=== PATIENT | female | born 1980 | race Caucasian/White ===

== ENCOUNTER 2016-10-29 15:31 | Emergency (ER) | payer OTHER ==
[2016-10-29 15:57] VITALS: BP 129/96
--- NOTE | 2016-10-29 17:10 | EDM.PDOC ---
ED HPI GENERAL MEDICAL PROBLEM - General Chief Complaint: General Stated Complaint: HEADACHE; DIZZY Time Seen by Provider: 10/29/16 16:07 Source of Information: Reports: Patient, RN Notes Reviewed History Limitations: Reports: No Limitations - History of Present Illness INITIAL COMMENTS - FREE TEXT/NARRATIVE: 36-year-old female presents emergency department today with complaint of fullness in her ears and head this been going on for about 9 days she denies any fever nausea vomiting she does feel dizzy at times and does complain of headache she is tried phenylephrine with minimal relief Headache Pain Score (Numeric/FACES): 9 - Related Data Allergies Allergy/AdvReac Type Severity Reaction Status Date / Time No Known Allergies Allergy Verified 10/29/16 15:57 Home Meds: Home Meds NK [No Known Home Meds] 10/29/16 [History] 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 Social & Family History - Tobacco Use Smoking Status *Q: Never Smoker - Caffeine Use Caffeine Use: Reports: Soda - Recreational Drug Use Recreational Drug Use: No ED ROS GENERAL - Review of Systems Review Of Systems: See Below Constitutional: Denies: Fever, Chills HEENT: Reports: Ear Pain, Sinus Problem Respiratory: Reports: No Symptoms Cardiovascular: Reports: No Symptoms GI/Abdominal: Reports: No Symptoms : Reports: No Symptoms Neurological: Reports: Headache ED EXAM, GENERAL - Physical Exam Exam: See Below Exam Limited By: No Limitations General Appearance: Alert, WD/WN, No Apparent Distress Eye Exam: Bilateral Eye: Normal Inspection Ears: Normal External Exam, Normal Canal, Other (Fluid is appreciated behind both membranes) Ear Exam: Bilateral Ear: TM Bulging Nose: Normal Inspection, Normal Mucosa, No Blood Throat/Mouth: Normal Inspection, Normal Lips, Normal Teeth, Normal Gums, Normal Oropharynx, Normal Voice, No Airway Compromise Head: Atraumatic, Normocephalic Neck: Normal Inspection Respiratory/Chest: No Respiratory Distress Course - Vital Signs Last Recorded V/S: Last Vital Signs Temp 98.4 F 10/29/16 15:58 Pulse 82 10/29/16 15:58 Resp 16 07/02/17 15:58 BP 129/96 H 10/29/16 15:58 Pulse Ox 96 10/29/16 15:58 Departure - Departure Time of Disposition: 17:09 Disposition: Home, Self-Care 01 Condition: Good Clinical Impression: Serous otitis media Qualifiers: Chronicity: acute Laterality: bilateral Recurrence: not specified as recurrent Qualified Code(s): H65.03 - Acute serous otitis media, bilateral - Discharge Information Forms: ED Department Discharge Additional Instructions: Try the pseudoephedrine as needed for symptomatic relief of the head pressure, Please followup with your primary care provider in 3-5 days if not better, please call return to the emergency department with worsening of symptoms. - Assessment/Plan Plan: Assessment Acuity = acute Site and laterality = serous otitis media Etiology = unclear etiology Manifestations = headache Location of injury = Home Lab values = none Plan Continue symptomatic care will add pseudoephedrine 60 mg 3 times a day when necessary follow-up with primary care 3-5 days if not better doubt Patient was in agreement with the plan all questions were answered, they were instructed to return to the emergency department or call for worsening symptoms. This note was dictated using [facility] voice recognition software please call with any questions.
== END 2016-10-29 17:23 | disposition home or self-care (01) ==
LOC: JP.ED 15:31
DX: H65.03 Acute serous otitis media, bilateral (principal); Z90.49 Acquired absence of other specified parts of digestive tract; Z98.890 Other specified postprocedural states
CPT/HCPCS: 99284

== ENCOUNTER 2020-11-20 19:20 | Emergency (ER) | payer OTHER ==
[2020-11-20] MEDS ORDERED: Famotidine 20 MG/2 ML SDV IVPUSH ONE (19:28)
[2020-11-20] MEDS ORDERED: diphenhydrAMINE 50 MG/ML SDV IVPUSH ONE (19:28)
[2020-11-20] MEDS ORDERED: methylPREDNISolone Sodium Succinate 125 MG/2 ML SDV IV ONE (19:28)
[2020-11-20] MEDS ORDERED: Sodium Chloride 0.9% 1,000 ML IV SCH (19:30)
[2020-11-20 20:29] VITALS: BP 151/102; PULSE 91
--- NOTE | 2020-11-20 20:38 | EDM.PDOC ---
ED HPI GENERAL MEDICAL PROBLEM - General Chief Complaint: Allergic Reaction Stated Complaint: BITTEN IN HESTER Time Seen by Provider: 11/20/20 19:31 Source of Information: Reports: Patient History Limitations: Reports: No Limitations - History of Present Illness INITIAL COMMENTS - FREE TEXT/NARRATIVE: 40 yo female present to ER full body hives after being stung by an insect in the right leg. 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: Musculoskeletal History: Reports: Fracture Neurological History: Reports: Concussion Endocrine/Metabolic History: Reports: Obesity/BMI 30+ - Infectious Disease History Infectious Disease History: Reports: Chicken Pox - Past Surgical History Head Surgeries/Procedures: Reports: None HEENT Surgical History: Reports: Adenoidectomy, Tonsillectomy Cardiovascular Surgical History: Reports: None GI Surgical History: Reports: Cholecystectomy Endocrine Surgical History: Reports: None Neurological Surgical History: Reports: None Musculoskeletal Surgical History: Reports: Other (See Below) Other Musculoskeletal Surgeries/Procedures:: right ankle surgery. Dermatological Surgical History: Reports: None Social & Family History - Tobacco Use Tobacco Use Status *Q: Never Tobacco User Second Hand Smoke Exposure: No - Caffeine Use Caffeine Use: Reports: Coffee, Soda - Recreational Drug Use Recreational Drug Use: No ED ROS ALLERGIC REACTION - Review of Systems Review Of Systems: See Below Constitutional: Denies: Fever, Chills, Fatigue HEENT: Denies: Throat Swelling Respiratory: Denies: Shortness of Breath, Wheezing, Cough Cardiovascular: Denies: Chest Pain GI/Abdominal: Denies: Abdominal Pain Skin: Reports: Rash, Urticaria ED EXAM GENERAL NO PERIP PULSE - Physical Exam Exam: See Below Exam Limited By: No Limitations General Appearance: Alert, WD/WN, Mild Distress Head: Atraumatic, Normocephalic Neck: Normal Inspection, Supple, Non-Tender, Full Range of Motion Respiratory/Chest: No Respiratory Distress, Lungs Clear, Normal Breath Sounds. No: Crackles, Rhonchi, Wheezing Cardiovascular: No Murmur, Tachycardia GI/Abdominal: Soft, Non-Tender Neurological: Alert, Oriented Skin Exam: Warm, Dry, Intact, Increased Warmth, Rash, Other (uticaria ABD, groin, axillary, ears, chin and lower lip) Course - Vital Signs Last Recorded V/S: Last Vital Signs Temp 36.4 C 11/20/20 19:47 Pulse 91 11/20/20 20:29 Resp 16 11/20/20 19:53 BP 151/102 H 11/20/20 20:29 Pulse Ox 97 11/20/20 20:29 - Orders/Labs/Meds Orders: Active Orders 24 hr Category Date Time Status Sodium Chloride 0.9% [Normal Saline] 1,000 ml Med 11/20/20 19:30 Active IV ASDIRECTED Medication Orders Sodium Chloride (Normal Saline) 1,000 mls @ 125 mls/hr IV ASDIRECTED BARRIE Last Admin: 11/20/20 19:42 Dose: 125 mls/hr Documented by: LUPILLO Meds: Medications Generic Name Dose Route Start Last Admin Trade Name Freq PRN Reason Stop Dose Admin Sodium Chloride 1,000 mls @ 125 mls/hr 11/20/20 19:30 11/20/20 19:42 Normal Saline IV 125 mls/hr ASDIRECTED BARRIE Administration Discontinued Medications Generic Name Dose Route Start Last Admin Trade Name Freq PRN Reason Stop Dose Admin Diphenhydramine HCl 50 mg 11/20/20 19:28 11/20/20 19:36 Diphenhydramine 50 Mg/Ml Sdv IVPUSH 11/20/20 19:29 50 mg ONETIME ONE Administration Famotidine 20 mg 11/20/20 19:28 11/20/20 19:39 Famotidine 20 Mg/2 Ml Sdv IVPUSH 11/20/20 19:29 20 mg ONETIME ONE Administration Methylprednisolone Sodium Succinate 125 mg 11/20/20 19:28 11/20/20 19:34 Methylprednisolone Sodium Succinate 125 Mg/2 Ml Sdv IV 11/20/20 19:29 125 mg ONETIME ONE Administration - Re-Assessments/Exams Free Text/Narrative Re-Assessment/Exam: 11/20/20 21:06 pt was evaluated on arrival to the ER with mild distress. She was bit minutes ago by an insect in the leg and developed hives and itching. Her lower lip began to swell. Denies SOB, wheezing or difficulty swallowing. SHe has never had a reaction of this kind before. She does react at the site for fly bites. IV was established and she received 500 cc of normal saline, Solu-medrol, Benadryl and pepcid. hive resolved. 11/20/20 21:15 Departure - Departure Time of Disposition: 21:17 Disposition: Home, Self-Care 01 Condition: Good Clinical Impression: Allergic reaction Qualifiers: Encounter type: initial encounter Qualified Code(s): T78.40XA - Allergy, unspecified, initial encounter - Discharge Information *PRESCRIPTION DRUG MONITORING PROGRAM REVIEWED*: Not Applicable *COPY OF PRESCRIPTION DRUG MONITORING REPORT IN PATIENT JORGE: Not Applicable Instructions: Anaphylactic Reaction, Adult Referrals: PCP,None [Primary Care Provider] - Forms: ED Department Discharge Additional Instructions: increase fluid intake with goal of 1 liter per day for the next few days epi-autoinjector as they next time this reaction may be worse and faster do place Benadryl in your car, boat and purse Sepsis Event Note (ED) - Evaluation Sepsis Screening Result: No Definite Risk - Focused Exam Vital Signs: Vital Signs Temp Pulse Resp BP Pulse Ox 11/20/20 20:29 91 151/102 H 97 11/20/20 19:53 105 H 16 179/112 H 99 11/20/20 19:47 36.4 C 108 H 17 170/106 H 94 L 11/20/20 19:46 36.4 C 108 H 17 170/106 H 94 L - My Orders Last 24 Hours: My Active Orders 11/20/20 19:30 Sodium Chloride 0.9% [Normal Saline] 1,000 ml IV ASDIRECTED - Assessment/Plan Last 24 Hours: My Active Orders 11/20/20 19:30 Sodium Chloride 0.9% [Normal Saline] 1,000 ml IV ASDIRECTED
== END 2020-11-20 21:26 | disposition home or self-care (01) ==
LOC: JP.ED 19:20
DX: T63.481A Toxic effect of venom of other arthropod, accidental (unintentional), initial encounter (principal); E66.9 Obesity, unspecified; Z68.35 Body mass index [BMI] 35.0-35.9, adult
CPT/HCPCS: 96374; 96375; 99283; J1200; J2930; J3490; J7030